=== PATIENT | male | born 1960 | race Caucasian/White ===

== ENCOUNTER 2019-01-15 09:15 | Emergency (ER) | payer BC, OTHER ==
[2019-01-15 09:41] VITALS: BP 132/77; PULSE 62; TEMP 97.9; BMI 29.2
--- NOTE | 2019-01-15 10:07 | PDOC ---
History of Present Illness - General Chief Complaint: Rash Stated Complaint: RASH Time Seen by Provider: 01/15/19 09:45 Past History - Past Medical History Allergies/Adverse Reactions: Allergies Allergy/AdvReac Type Severity Reaction Status Date / Time No Known Allergies Allergy Verified 01/15/19 09:33 Home Medications: Ambulatory Orders Clobetasol Propionate [Temovate] 1 applic TP BID #1 tube 01/15/19 Methylprednisolone [Medrol Dose Clem] 4 mg PO ASDIR #21 tablet 01/15/19 COPD: No HTN: Yes Hypercholesterolemia: Yes - Immunization History Immunization Up to Date: No - Suicide/Smoking/Psychosocial Hx Smoking History: Never smoked Have you smoked in the past 12 months: No Information on smoking cessation initiated: No Hx Alcohol Use: No Drug/Substance Use Hx: No *Physical Exam - Vital Signs Last Vital Signs Temp Pulse Resp BP Pulse Ox 97.9 F 62 16 132/77 99 01/15/19 09:33 01/15/19 09:33 01/15/19 09:33 01/15/19 09:33 01/15/19 09:33 *DC/Admit/Observation/Transfer Diagnosis at time of Disposition: Rash and nonspecific skin eruption - Discharge Dispostion Disposition: HOME Condition at time of disposition: Stable Decision to Admit order: No - Referrals Referrals: Margarita Jacobson MD [Staff Physician] - - Patient Instructions Printed Discharge Instructions: DI for Rash Additional Instructions: you were evaluated for your rash today. It appears to be allergic in nature. Please take the steroids as directed starting tomorrow. You may use the clobetasol cream twice a day as needed for itching. Do not use this cream on the face or in the groin. You may take Benadryl 25 mg every 6 hours as needed for itching. Please follow-up with your primary care doctor this week. Return to the ER for any new or worsening symptoms. Usted fue evaluado para baker erupcin hoy. Parece ser alrgico en la naturaleza. Por favor tome los esteroides catracho se indica a partir de maana. Puede utilizar la crema clobetasol dos veces al da segn sea necesario para la picazn. No utilice esta crema en la kevin o en la valerie. Puede jodi Benadryl 25 mg cada 6 horas segn sea necesario para la picazn. Por favor, emmy un seguimiento con baker mdico de cabecera esta semana. Regrese a urgencias para cualquier sntoma nuevo o empeoramiento. - Post Discharge Activity
[2019-01-15] MEDS ORDERED: DEXAMETHASONE LIQUID 0.5 MG/5 ML 240 ML BULK BOTTLE PO ONE (10:09)
[2019-01-15] MEDS ORDERED: DEXAMETHASONE SOD PHOSPHATE 10 MG/1 ML VIAL ONE (10:19)
== END 2019-01-15 10:27 | disposition home or self-care (01) ==
LOC: JERFT 09:15 → JER 09:15 → JERFT 10:27
DX: R21 Rash and other nonspecific skin eruption (principal)
CPT/HCPCS: 99281-25

== ENCOUNTER 2019-02-06 17:04 | Emergency (ER) | payer OTHER | END 2019-02-06 17:57 | disposition home or self-care (01) | LOC: JERFT 17:04 ==

== ENCOUNTER 2019-03-26 11:59 | Emergency (ER) | payer OTHER | END 2019-03-26 12:42 | disposition home or self-care (01) | LOC: JER 11:59 → JERFT 12:42 ==